=== PATIENT | male | born 1990 | race Caucasian/White ===

== ENCOUNTER 2023-10-02 00:45 | Emergency (ER) | payer OTHER, SELFPAY ==
[2023-10-02 00:54] VITALS: BP 134/98; PULSE 91; RESP 18; TEMP 36.6; O2SAT 99
--- NOTE | 2023-10-02 00:55 | ED.DENTAL ---
HPI - Dental/Oral General Chief complaint: Dental/Oral Stated complaint: dental pain Source: patient Mode of arrival: ambulatory Limitations: no limitations History of Present Illness HPI Narrative: 32-year-old male with no significant past medical history presents to the ER with -- left lower jaw pain for the past few months. The patient has extensive caries. No ear pain or discharge. MD Complaint: tooth pain Location: Tooth # ( Multiple teeth are carious. 18. Is currently fractured and carious with surrounding gum inflammation.) Onset (ago): month(s) Duration: constant Severity: severe Relieving factors: nothing Exacerbating factors: nothing Context: history of dental caries Related Data Allergies Allergy/AdvReac Type Severity Reaction Status Date / Time No Known Allergies Allergy Verified 10/02/23 01:02 Review of Systems Review of Systems: All systems reviewed & are unremarkable except as noted in HPI and below Constitutional: Constitutional: Reports as per HPI and Reports no additional constitutional complaints Eyes: Eyes: Reports as per HPI and Reports no additional eye complaints ENT: Reports system reviewed and no additional complaints, except as documented and Reports as per HPI Comments: Dental pain Cardiovascular: Cardiovascular: Reports as per HPI and Reports no additional cardiovascular complaints Respiratory: Respiratory: Reports as per HPI and Reports no additional respiratory complaints Gastrointestinal: Gastrointestinal: Reports as per HPI and Reports no additional gastrointestinal complaints Genitourinary: Genitourinary: Reports no additional male genitourinary complaints and Reports as per HPI Musculoskeletal: Musculoskeletal: Reports no additional musculoskeletal complaints and Reports as per HPI Integumentary/Breasts: Skin/Breast: Reports system reviewed and no additional complaints, except as docu and Reports as per HPI Neurologic: Reports system reviewed and no additional complaints, except as documented and Reports as per HPI Psychiatric: Psychiatric: Reports no additional psychiatric complaints and Reports as per HPI Endocrine: Endocrine: Reports no additional endocrine complaints and Reports as per HPI Hematologic/Lymphatic: Hematologic/Lymphatic: Reports no additional hematologic/lymphatic complaints and Reports as per HPI Allergic/Immunologic: Allergic/Immunologic: Reports no additional allergic/immunologic complaints and Reports as per HPI PMFSH Past Medical History Medical History Dental caries Social History Social History Smoking status: Current every day smoker Tobacco type: cigarettes Alcohol intake: never Substance use: current Substance use type: marijuana Exam Const: General: ill appearing Nutritional Appearance: well nourished Orientation/consciousness: patient oriented x3 Limitations: no limitations HENMT: Head: normal to inspection Ears: external ears normal Face/Nose/Sinus: Normal external nose present Face and sinus: normal facial exam Teeth and gingiva: dentition normal ( extensive dental caries. 18. Currently appears to be the source of pain a) and abnormal tooth and associated gingiva Throat: posterior oropharynx normal Eyes: Conjunctivae: conjunctivae normal Pupils: Equal, round and reactive pupils present Direct Ophthalmoscopy: no photophobia Neck: Neck: normal visual inspection, no lymphadenopathy and no meningeal signs Chest: Chest palpation & inspection: normal inspection of the chest Resp: Effort & Inspection: normal respiratory effort Auscultation: clear to auscultation bilaterally Cardio: Rate: regular rate Rhythm: regular rhythm GI: Auscultation: normal bowel sounds : General: Yes no CVA tenderness Back/Spine/Pelvis: Back: no CVA tenderness Skin: General skin exam: normal color Rashes: no ra
[2023-10-02] MEDS: HYDROcodone/acetaminophen (*CRX) 5-325 MG TABLET 1 TAB PO (01:15)
[2023-10-02] MEDS: CLINDAMYCIN HCL 150 MG CAP 300 MG PO (01:16)
== END 2023-10-02 01:20 | disposition home or self-care (01) ==
PROVIDERS: Emergency Provider Internal Medicine Critical Care Medicine
DX: K02.9 Dental caries, unspecified (principal); F17.210 Nicotine dependence, cigarettes, uncomplicated
CPT/HCPCS: 99283; A9270

== ENCOUNTER 2025-02-22 22:05 | Emergency (ER) | payer OTHER, SELFPAY ==
[2025-02-22 22:13] VITALS: BP 140/88; PULSE 110; RESP 15; TEMP 36.8; O2SAT 98
--- NOTE | 2025-02-22 22:18 | ED_ITS ---
HPI - Skin/Abscess/Foreign Bdy General Chief complaint: Wound/Laceration Stated complaint: Skin Abscess Time Seen by Provider: 02/22/25 22:18 Source: patient Mode of arrival: ambulatory Limitations: no limitations History of Present Illness HPI narrative: Patient is a 34-year-old male with multiple wounds on his arms and legs from unclear origin. He did claim to the nurse that he uses methamphetamines. Tetanus shot not up-to-date. complaint: other ( Multiple wounds on arms and legs with redness and pain) Onset (ago): unknown Tetanus up to date: no Location: LUE, RUE, LLE and RLE Severity: mild Severity scale (1-10): 3 Quality: aching and constant Pain Consistency: constant Relieving factors: none Exacerbating factors: none Context: other ( patient has multiple wounds on arms and legs that will not resolve and unclear origin and unclear time frame per patient) Associated symptoms: denies other symptoms Treatments prior to arrival: none Related Data Allergies Allergy/AdvReac Type Severity Reaction Status Date / Time No Known Allergies Allergy Verified 02/22/25 22:13 Review of Systems Review of Systems: All systems reviewed & are unremarkable except as noted in HPI and below Constitutional: Constitutional: Reports no additional constitutional complaints Eyes: Eyes: Reports no additional eye complaints ENT: Reports system reviewed and no additional complaints, except as documented Cardiovascular: Cardiovascular: Reports no additional cardiovascular complaints Respiratory: Respiratory: Reports no additional respiratory complaints Gastrointestinal: Gastrointestinal: Reports no additional gastrointestinal complaints Genitourinary: Genitourinary: Reports no additional male genitourinary complaints Musculoskeletal: Musculoskeletal: Reports no additional musculoskeletal complaints Integumentary/Breasts: Skin/Breast: Reports system reviewed and no additional complaints, except as docu Neurologic: Reports system reviewed and no additional complaints, except as documented Psychiatric: Psychiatric: Reports no additional psychiatric complaints Endocrine: Endocrine: Reports no additional endocrine complaints Hematologic/Lymphatic: Hematologic/Lymphatic: Reports no additional hematologic/lymphatic complaints Allergic/Immunologic: Allergic/Immunologic: Reports no additional allergic/immunologic complaints PMFSH Past Medical History Medical History Dental caries Social History Social History Smoking status: Current every day smoker Tobacco type: cigarettes Alcohol intake: never Substance use: current Substance use type: marijuana Exam Const: General: healthy appearing Nutritional Appearance: well nourished Orientation/consciousness: patient oriented x3 Limitations: no limitations Other: patient appears disheveled and homeless HENMT: Head: normal to inspection Ears: external ears normal Face/Nose/Sinus: Normal external nose present Eyes: Conjunctivae: conjunctivae normal Pupils: Equal, round and reactive pupils present EOM: EOMs intact bilaterally Neck: Neck: normal visual inspection Chest: Chest palpation & inspection: normal inspection of the chest Resp: Effort & Inspection: normal respiratory effort and not labored Auscultation: clear to auscultation bilaterally and no crackles Cardio: Rate: regular rate Rhythm: regular rhythm Heart sounds: no murmurs GI: Inspection: non-distended GI Palp: Yes Soft to palpation, No Tenderness to palpation present (GI) and No Guarding due to palpation present (GI) Auscultation: normal bowel sounds : General: Yes bladder normal to palpation Back/Spine/Pelvis: Back: no CVA tenderness Skin: General skin exam: normal color Rashes: no rashes Wounds: wound noted and wounds noted Other: wounds on the left upper extremity x2, right upper extremity x1 and left lower extremity x2 (left knee itself has redness and he points to pain from the knee up to the groin); they are small laceration type wounds with erythema /redness and central ulceration type changes Neuro: General: patient oriented x3 Cranial nerves: Yes Nystagmus not present Speech: normal speech Gait exam (Neuro): Normal gait present Extrem: General: normal to inspection Psych: Mental Status: mental status grossly normal Affect: normal affect Attitude: cooperative Course Vital Signs Vital signs: Vital Signs Temperature 36.8 C 02/22/25 22:13 Pulse Rate 110 H 02/22/25 22:13 Respiratory Rate 15 02/22/25 22:13 Blood Pressure 140/88 02/22/25 22:13 Pulse Oximetry 98 02/22/25 22:13 Oxygen Delivery Room Air 02/22/25 22:13 Temperature 36.8 C 02/22/25 22:13 Pulse Rate 110 H 02/22/25 22:13 Respiratory Rate 15 02/22/25 22:13 Blood Pressure 140/88 02/22/25 22:13 Pulse Oximetry 98 02/22/25 22:13 Oxygen Delivery Room Air 02/22/25 22:13 MDM - Skin/Abscess/Foreign Bdy MDM Narrative Medical decision making narrative: patient is a 34-year-old male with multiple wounds and skin infections. We will give him at a cell booster. We will give him doxycycline. Discharge Plan Discharge Clinical Impression: Multiple wounds of skin Patient Disposition: Home, Self-Care Condition: Stable Instructions: Antibiotic Form, Acute Wounds (DC) Additional Instructions: please follow-up with the primary doctor in the next week. Come back to the emergency room for worse pain or drainage from the areas especially on antibiotics. If the left lower extremity continues to be a problem then I suggest we get an ultrasound to rule out future possibilities. Patient Language: E[place]rean Prescriptions: New doxycycline monohydrate 100 mg capsule 100 mg PO BID 10 Days Qty: 20 0RF Follow-up/Referrals: Fermin Boykin MD [Primary Care Provider] - Time of Disposition: 22:34
[2025-02-22] MEDS: TETANUS,DIPHTHERIA,AC PERTUSSIS ADULT 0.5 ML (ADACEL) IM (22:44)
[2025-02-22] MEDS: DOXYCYCLINE HYCLATE 100 MG TABLET PO (22:45)
== END 2025-02-22 23:06 | disposition home or self-care (01) ==
LOC: CHSED 22:50
PROVIDERS: Emergency Provider Emergency Medicine; PCP Family Medicine
DX: S41.102A Unspecified open wound of left upper arm, initial encounter (principal); S41.101A Unspecified open wound of right upper arm, initial encounter; S81.802A Unspecified open wound, left lower leg, initial encounter; S81.801A Unspecified open wound, right lower leg, initial encounter; F17.200 Nicotine dependence, unspecified, uncomplicated; X58.XXXA Exposure to other specified factors, initial encounter; Z23 Encounter for immunization
CPT/HCPCS: 90471; 90715; 99283; A9270

== ENCOUNTER 2025-07-04 05:04 | Emergency (ER) | payer OTHER, SELFPAY ==
--- NOTE | ~2025-07-04 | XR_ITS ---
XR foot LT min 3V 07/04/2025 05:31 INDICATION: Left foot pain. Patient stepped on nail. PROCEDURE: 4 views left foot COMPARISON: No prior studies for comparison. FINDINGS: Fracture, dislocation or subluxation is not identified. Lisfranc joint intact. The soft tis sues appear within normal limits. No foreign bodies are identified. IMPRESSION: 1: NO ACUTE BONE OR JOINT ABNORMALITY IDENTIFIED. Reviewed, dictated and finalized at location A.
[2025-07-04 05:04] VITALS: BP 127/71; PULSE 89; RESP 16; TEMP 37.2; O2SAT 98
--- NOTE | 2025-07-04 05:07 | ED_ITS ---
HPI - Extremity Injury (Lower) General Chief Complaint: Extremity Injury, Lower Stated Complaint: stepped on nail Time Seen by Provider: 07/04/25 05:07 Source: patient Mode of arrival: ambulatory Limitations: no limitations History of Present Illness HPI Narrative: Patient is a 34-year-old male who was doing yd work in the night and stepped on a large nail. He had a tetanus shot last year. He felt pain in the left foot and removed the nail when it was noted. MD complaint: foot injury ( Left plantar) Onset (ago): hour(s) (2) Type of Injury: puncture wound Place: home and street/outdoors Severity: moderate Severity scale (1-10): 3 Relieving factors: rest Exacerbating factors: weight bearing, movement and palpation Context: stepped on nail Associated symptoms: ambulatory Other symptoms: none Treatments prior to arrival: bandage Related Data Allergies Allergy/AdvReac Type Severity Reaction Status Date / Time No Known Allergies Allergy Verified 07/04/25 05:08 Review of Systems Review of Systems: All systems reviewed & are unremarkable except as noted in HPI and below Constitutional: Constitutional: Reports no additional constitutional complaints Eyes: Eyes: Reports no additional eye complaints ENT: Reports system reviewed and no additional complaints, except as documented Cardiovascular: Cardiovascular: Reports no additional cardiovascular complaints Respiratory: Respiratory: Reports no additional respiratory complaints Gastrointestinal: Gastrointestinal: Reports no additional gastrointestinal complaints Genitourinary: Genitourinary: Reports no additional male genitourinary complaints Musculoskeletal: Musculoskeletal: Reports no additional musculoskeletal complaints Integumentary/Breasts: Skin/Breast: Reports system reviewed and no additional complaints, except as docu Neurologic: Reports system reviewed and no additional complaints, except as documented Psychiatric: Psychiatric: Reports no additional psychiatric complaints Endocrine: Endocrine: Reports no additional endocrine complaints Hematologic/Lymphatic: Hematologic/Lymphatic: Reports no additional hematologic/lymphatic complaints Allergic/Immunologic: Allergic/Immunologic: Reports no additional allergic/immunologic complaints PMFSH Past Medical History Medical History Dental caries Social History Social History Smoking status: Current every day smoker Tobacco type: cigarettes Alcohol intake: never Substance use: current Substance use type: marijuana Exam Const: General: healthy appearing Nutritional Appearance: well nourished Orientation/consciousness: patient oriented x3 HENMT: Head: normal to inspection Ears: external ears normal Face/Nose/Sinus: Normal external nose present Eyes: Conjunctivae: conjunctivae normal Pupils: Equal, round and reactive pupils present EOM: EOMs intact bilaterally Neck: Neck: normal visual inspection Chest: Chest palpation & inspection: normal inspection of the chest Resp: Effort & Inspection: normal respiratory effort and not labored Auscultation: clear to auscultation bilaterally and no crackles Cardio: Rate: regular rate Rhythm: regular rhythm Heart sounds: no murmurs GI: Inspection: non-distended GI Palp: Yes Soft to palpation and No Tenderness to palpation present (GI) Auscultation: normal bowel sounds : General: Yes bladder normal to palpation Back/Spine/Pelvis: Back: no CVA tenderness Skin: General skin exam: normal color Rashes: no rashes Wounds: wound noted Other: left foot plantar surface mid foot has a puncture wound present without pus or drainage or infection and no bleeding Neuro: General: patient oriented x3, moves all extremities and no meningeal signs Extrem: General: normal to inspection Psych: Mental Status: mental status grossly normal Affect: normal affect Attitude: cooperative Course Vital Signs Vital signs: Vital Signs Temperature 37.2 C 07/04/25 05:04 Pulse Rate 89 07/04/25 05:04 Respiratory Rate 16 07/04/25 05:04 Blood Pressure 127/71 07/04/25 05:04 Pulse Oximetry 98 07/04/25 05:04 Oxygen Delivery Room Air 07/04/25 05:04 Temperature 37.2 C 07/04/25 05:04 Pulse Rate 89 07/04/25 05:04 Respiratory Rate 16 07/04/25 05:04 Blood Pressure 127/71 07/04/25 05:04 Pulse Oximetry 98 07/04/25 05:04 Oxygen Delivery Room Air 07/04/25 05:04 MDM - Extremity Injury (Lower) MDM Narrative Medical decision making narrative: patient is a 34-year-old male with a left foot puncture wound into the soft tissue this evening. Tetanus shot up-to-date. We will use Keflex. X-ray. Imaging Data Attestation: I personally reviewed and interpreted this imaging study as follows: My impression: X-ray left foot pending final read shows no acute process Discharge Plan Discharge Clinical Impression: Foreign body in foot, left Qualifiers: Encounter type: initial encounter Qualified Code(s): S90.852A - Superficial foreign body, left foot, initial encounter Patient Disposition: Home Condition: Stable Instructions: Antibiotic Form, Soft Tissue Foreign Body (ED) Patient Language: Icelandic Prescriptions: New cephalexin 500 mg capsule 500 mg PO BID 7 Days Qty: 14 0RF Follow-up/Referrals: UNKNOWN,DOCTOR [Primary Care Provider] - Time of Disposition: 05:27
--- OUTSIDE RECORDS SUMMARY | 2025-07-04 05:08 | XMS_ITS ---
Author Organization [facility] Address [address] [place] [address] Care Team Providers Care General Ledger Accountant Name Role Phone Gómez Mcmullen Primary Care Provider Tasneem Hargrove Unavailable [phone] Allergies No Known Allergies REASON FOR VISIT ADHD Meds Medications Medication SIG (Take, Route, Fr equency, Duration) Notes Start Date End Date Status Nicotine Mini 4 MG 1 lozenge as needed Mouth/Throat every 8 hrs Active Social History Tobacco Use: Social History Observation Description Date Details (start date - stop date) Current Smoker NA - NA Sexual History Question Answer Notes Had sex in the past 12 months (vaginal, oral, or anal)? Yes with Women only Use protection? No Prevention strategies discussed: Condoms Have you ever had a Sexually transmitted disease ? No Tobacco use other than smoking: Question Answer Notes Are you an other tobacco user? No Tobacco Control (Standard) Question Answer Notes Tobacco use: Current smoker How often do you smoke cigarettes? Every day How many cigarettes a day do you smoke? 5 or les s How soon after you wake up do you smoke your fir st cigarette? Within 5 minutes Are you interested in quitting? Not ready to lissy t AUDIT-C (Standard) Question Answer Notes Did you have a drink contain ing alcohol in the past year? Yes How often did you have a dri nk containing alcohol in the past year? 2 to 4 times a month (2 points) How many drinks did you have on a typical day when you were drinking in the past year? 3 or 4 drinks (1 point) How often did you have six o r more drinks on one occasion in the past year? 2 to 4 times a month (2 points) Points 5 Interpretation Positive Problems Problem Type SNOMED Code ICD Code Onset Dates Problem Status W/U Status Risk Notes Problem Addiction (32538110) Addiction (F19.20) Active confirmed Problem Alcohol dependence (80843604) Alcoh dep NEC/NOS, unspec (F10.288) Active confirmed Problem Anxiety (27133203) Anxiety (F41.9) Active confirmed Vital Signs Temperature 97.3 degrees Fahrenheit 04/26/20 25 Blood pressure systolic 141 mm Hg 04/26/20 25 Blood pressure diastolic 81 mm Hg 025 Heart Rate 78 /min 04/26/2025 Respiratory Rate 18 /min 04/26/2025 Height 70 in 04/26/2025 Weight 175 lbs 04/26/2025 BMI 25.11 kg/m2 04/26/2025 Oximetry 98 % 04/26/2025 Height-cm 177.8 cm 04/26/2025 Weight-kg 79.38 kg 04/26/2025 Encounters Encounter Location Date Provider Diagnosis [facility] [address] [place] [id number] 04/26/2025 Tasneem Julesoctavia Addiction F19.20 ; Anxiety F41.9 ; Gambling and betting Z72.6 ; Alcoh dep NEC/NOS, unspec F10.288 ; Tobacco abuse Z72.0 and Tobacco abuse counseling Z71.6 Assessments Encounter Date Diagnosis (ICD Code) Assessment Notes Treatment Notes Treatment Clinical Notes Section Notes 04/26/2025 Addiction (ICD-10 - F19.20) 04/26/2025 Anxiety (ICD-10 - F41.9) 04/26/2025 Gambling and betting (ICD-10 - Z72.6) 04/26/2025 Alcoh dep NEC/NOS, unspec (ICD-10 - F10.288) 04/26/2025 Tobacco abuse (ICD-10 - Z72.0) 04/26/2025 Tobacco abuse counseling (ICD-10 - Z71.6) Plan Of Treatment No Information Progress Notes * Angus ANDREWDOB: [birth year] (34 yo M)Acc No.[id number]:04/26/2025 Patient: Angus PARIKH Provider: WALDO Duckworth :1990 A ge:34 Y S ex:Male Date:04/26/2025 Address:[address] [place] [address], [place], [place]-[address] Pcp:Gómez Mcmullen Check In:01:34 PM CSTChejessika O ut:01:41 PM CHAIR MENDER Subjective: * Chief Complaints: * 1 . ADHD Meds. * HPI: D epression Screening: PHQ-2 (2015 Edition) L ittle interest or pleasure in doing things? N ot at all, F eeling down, depressed, or hopeless? N ot at all, T otal Score 0 . 04/26/25 Patient presents for ADHD medication. He reports that he was diagnosed with ADHD when he was in the seventh grade. He did take the medication for sometimes then stopped taking the medication. He states he feels full of energy. He did not report any concentration issues. He is using a stress ball when he gets anxious. He reports his anxiety has not been an issue. He is sleeping well at night. His PHQ9 score is 6 today. He states that he does not feel depressed and has no thoughts of self harm. We did discuss his options and at this time he wants to wait before starting any medication. He was encouraged to return if he changed his mind about starting medications. History of Meth usage History of alcohol usage once per week. History of gambling addiction. Current smoker less than half pack per day. He is currently on Nicotine lozenges as needed. D epression Screening: PHQ-9 L ittle interest or pleasure in doing things N ot at all, F eeling down, depressed, or hopeless N ot at all, T rouble falling or staying asleep, or sleeping too much N ot at all, F eeling tired or having little energy N ot at all, P oor appetite or overeating N ot at all, F eeling bad about yourself or that you are a failure, or have let yourself or your family down S everal days, T rouble concentrating on things, such as reading the newspaper or watching television M ore than half the days, M oving or speaking so slowly that other people could have noticed; or the opposite, being so fidgety or restless that you have been moving around a lot more than usual N early every day, T houghts that you would be better off or of hurting yourself in some way N ot at all, T otal Score 6 , I nterpretation M ild Depression. F amily Planning: Reproductive Life Plan D o you want to talk about contraception or prevention during your visit today? N o, D o any of these apply to you??I am here for something else. * ROS: G eneral/Constitutional: Patient denies c hills, fatigue, fever, headache. ? R espiratory: Patient denies c ough, shortness of breath, sputum production, wheezing. C ardiovascular: Patient denies c hest pain, palpitations, swelling in hands/feet, Syncopal events. G astrointestinal: Patient denies a bdominal pain, nausea, vomiting, diarrhea, constipation, blood in stool. M usculoskeletal: Patient denies a rthritis, back problems, muscle aches, painful joints, weakness. S kin: Patient denies d iscoloration, dry skin, mole(s), rash.? N eurologic: Patient denies d izziness, fainting, headache, loss of strength, seizures, tingling/numbness. P sychiatric: Patient denies f eelings of anxiety , depressed mood , auditory/visual hallucinations , suicidal/homicidal thoughts. * Medical History: M elatonin, Nicotine pouches. * Family History: F ather: , diagnosed with Cancer. M other: alive. 1 brother(s) , 4 sister(s) - healthy. . * Social History: T obacco Use: T obacco use other than smoking A re you an other tobacco user? N o. A re you a second hand smoker? A re you a second hand smoker? N o. T obacco Control (Standard) T obacco use: C urrent smoker, H ow often do you smoke cigarettes? E very day, H ow many cigarettes a day do you smoke? 5 or less, H ow soon after you wake up do you smoke your first cigarette? W ithin 5 minutes, A re you interested in quitting? N ot ready to quit.? P CMH: A DULT E ducation: M ore than high school diploma/GED, E mployment: P art time, D o you understand spoken faroese? Y es, C ommunication needs (hearing, visual or cognitive): N o, G ood ability to interact with other people: Y es, I nsecurities in? (list all that apply) N one, R eviewed/Updated 0 04/26/2025. D rug/Alcohol: A PARRISH-C (Standard) D id you have a drink containing alcohol in the past year? Y es,?How often did you have a drink containing alcohol in the past year? 2 to 4 times a month (2 points), H ow many drinks did you have on a typical day when you were drinking in the past year? 3 or 4 drinks (1 point), H ow often did you have six or more drinks on one occasion in the past year? 2 to 4 times a month (2 points), P oints 5 , I nterpretation P ositive. S exual History: S exual History H ad sex in the past 12 months (vaginal, oral, or anal)? Y es, w ith W omen only, U se protection? N o, P revention strategies discussed: C ondoms, H ave you ever had a Sexually transmitted disease? N o. D etails of Sexual History?Are you sexually active? Y es, A re you having any sexual problems? N o, H ave you had any sexually transmitted diseases (STDs)? N o. S exual Abuse H istory: n one.? D rugs/Alcohol: D rugs H ave you used drugs other than those for medical reasons in the past 12 months??Yes, A re you in a treatment program? Y es, r elapse prevention discussed? Y es, Name of program: [facility], T ype of program: R esidential treatment, H ave ever injected drugs? N o, A re you still using? N o, I s there a minor (18 years or younger) at risk at home? N o, M arijuana? Y es, M ethamphetamine? Y es. C affeine I ntake: m ore than 4 cups per day. * Medications: T aking Nicotine Mini 4 MG Lozenge 1 lozenge as needed Mouth/Throat every 8 hrs , Medication List reviewed and reconciled with the patient * Allergies: N .K.D.A. Objective: * Vitals: Wt 175lbs 04/26/2025 01:28:38 PM CHAIR MENDER Wt-kg* 79.38 kg 04/26/2025 01:28:38 PM CHAIR MENDER Jennifer F orrester TECHNICAL INTERN Ht* 70in 04/26/2025 01:27:44 PM CHAIR MENDER Jennifer F orrester TECHNICAL INTERN Ht-cm* 177.8 cm 04/26/2025 01:27:44 PM CHAIR MENDER Jennifer F orrester TECHNICAL INTERN BMI* 25.11Index 04/26/2025 01:28:38 PM CHAIR MENDER Jennifer F orrester TECHNICAL INTERN BP* 141/81mm Hg 04/26/2025 01:27:44 PM CHAIR MENDER Jennifer F orrester TECHNICAL INTERN Temp* 97.3F 04/26/2025 01:27:44 PM CHAIR MENDER Jennifer F orrester TECHNICAL INTERN HR* 78/min 04/26/2025 01:27:44 PM CHAIR MENDER Jennifer F orrester TECHNICAL INTERN RR* 18/min 04/26/2025 01:27:44 PM CHAIR MENDER Jennifer F orrester TECHNICAL INTERN Oxygen sat %* 98% 04/26/2025 01:27:44 PM CHAIR MENDER Jennifer F orrester TECHNICAL INTERN * Examination: G eneral Examination: GENERAL APPEARANCE: a lert, well hydrated, In no distress.? SKIN: g ood turgor, no rashes, warm and dry. HEART: no murmurs, regular rate and rhythm, S1, S2 normal. LUNGS: c lear to auscultation bilaterally, No wheezing, No rhonchi, No rales, No cough. ABDOMEN: S oft, Nontender, Nondistended, No masses, No visual or palpable hernia, Bowel sounds present. MUSCULOSKELETAL: f ull range of motion, No joint swelling or joint deformity. NEUROLOGIC: a lert and oriented, no focal neurological deficits, motor strength normal upper and lower extremities, gait normal. Assessment: * Assessment: 1. A ddiction - F19.20 2 . A nxiety - F41.9 (Primary) 3 .?Gambling and betting - Z72.6 4 . A lcoh dep NEC/NOS, unspec - F10.288 ? 5 . T obacco abuse - Z72.0 6 . T obacco abuse counseling - Z71.6? Plan: * Treatment: * Procedure Codes: G 9902 Pt scrn tbco and id as user * Preventive Medicine: YOUR PREVENTIVE WELLNESS PLAN: O ral Health: T he recommended frequency for dental check-ups is: e very 6 months, L ast dental check-up was: m ore than a year ago, Intervention: e ncouraged pt to make appointment with their dentist or with a dentist at [facility],?Education handouts provided: L earning about Dental Care. Counseling: B P Management: Erik IFESTYLE RECOMMENDATION: H ypertension education, P HYSICAL ACTIVITY RECOMMENDATION: G iving encouragement to exercise, D IETARY RECOMMENDATIONS: L ow fat diet education. C are goal follow-up plan: B KS management provided Y es, E xercise Counseling Provided- Y es, N utrition/Dietary Counseling provided?Yes, A chicho Normal BMI Follow-up G iving encouragement to exercise, Lifestyle education regarding diet. C ommunication to patient: Nick jonesnseled the Patient on smoking effects; education provided 0 04/26/2025 . S MOKING: P atient counselled on the dangers of tobacco use and urged to quit. 0 04/26/2025 . * * Electronic signature of WALDO Carnes on 07/04/2025 at 05:08 AM CDT Sign off status: Pending Visit Status: Nick DELEON (Check Out) * Provider: WALDO Duckworth Date: 0 04/26/2025 Generated for Gayle amos/Maricel/Lance on: 0 07/04/2025 05:08 AM CDT History and Physical Notes * HPI (History of Present Illness) Category Sub-Category Detail Notes Category Not es Family Planning Reproductive Life Plan Do you wa nt to talk about contraception or prevention during your visit today?: No Do any of these apply to you?: I am here for something else Depression Screening PHQ-9 Little inte rest or pleasure in doing things: Not at all Feeling down, depressed, or hopeless: No t at all Trouble falling or staying asleep, or sl eeping too much: Not at all Feeling tired or having little energy: N ot at all Poor appetite or overeating: Not at all Feeling bad about yourself o r that you are a failure, or have let yourself or your family down: Several days Trouble concentrating on thi ngs, such as reading the newspaper or watching television: More than half the days Moving or speaking so slowly that other people could have noticed; or the opposite, being so fidgety or restless that you have been moving around a lot more than usual: Nearly every day Thoughts that you would be b brett off or of hurting yourself in some way: Not at all Total Score: 6 Interpretation: Mild Depression Depression Screening PHQ-2 (2015 Edition) Little interest or pleasure in doing things?: Not at all 04/26/25 Patient presents for ADHD medication. He reports that he was diagnosed with ADHD when he was in the seventh grade. He did take the medication for sometimes then stopped taking the medication. He states he feels full of energy. He did not report any concentration issues. He is using a stress ball when he gets anxious. He reports his anxiety has not been an issue. He is sleeping well at night. His PHQ9 score is 6 today. He states that he does not feel depressed and has no thoughts of self harm. We did discuss his options and at this time he wants to wait before starting any medication. He was encouraged to return if he changed his mind about starting medications. History of Meth usage History of alcohol usage once per week. History of gambling addiction. Current smoker less than half pack per day. He is currently on Nicotine lozenges as needed. Feeling down, depressed, or hopeless?: N ot at all Total Score: 0 Examination Category Sub-Category Detail Notes Category Not es General Examination GENERAL APPEARANCE: alert, w ell hydrated, In no distress HEART: no murmurs, regular rate and rhythm, S1, S2 normal LUNGS: clear to auscultatio n bilaterally, No wheezing, No rhonchi, No rales, No cough ABDOMEN: Soft, Nontender, Non distended, No masses, No visual or palpable hernia, Bowel sounds present NEUROLOGIC: alert and oriented, no focal neurological deficits, motor strength normal upper and lower extremities, gait normal SKIN: good turgor, no rash es, warm and dry MUSCULOSKELETAL: full range of motion , No joint swelling or joint deformity
--- OUTSIDE RECORDS SUMMARY | 2025-07-04 05:08 | XMS_ITS | Patient Health Record ---
Author Organization [facility] Address [address] [place] [address] Care Team Providers Care Laboratory Associate Name Role Phone Gómez Mcmullen Primary Care Provider [phone] Tasneem Hargrove Unavailable [phone] Allergies No Known Allergies Reason For Referral No Information Medications Medication SIG (Take, Route, Frequency, Duration) Notes Start Date End Date Status Nicotine Polacrilex 4 MG USE 2 GUM(S) 3 TIMES A DAY NEEDED Mouth/Throat; Duration: 16 Days Not-Taking Cephalexin 500 MG TAKE 1 CAPSULE BY MARGE SHI EVERY 6 HOURS FOR 7 DAYS Oral; Duration: 7 Days Not-Takin g Immunizations Vaccine Route Administration Date Status Comme nts DTP Unknown 01/30/1994 Administered DTP Unknown 08/01/1994 Administered Hib, unspecified formulation Unknown 01/30/1994 Adminis tered MMR, NON-VFC Unknown 01/30/1994 Administered OPV Unknown 01/30/1994 Administered Tdap (Boostrix) NON-VFC Unknown 02/22/2025 Administered Social History Tobacco Use: Social History Observation Description Date Details (start date - stop date) Current Smoker 04/09/2000 - NA Sexual History Question Answer Notes Had sex in the past 12 months (vaginal, oral, or anal)? Yes with Women only Use protection? No Have you ever had a Sexually transmitted disease ? No Tobacco Control (Standard) Question Answer Notes Tobacco use: Current smoker When did you start smoking? 04/09/2000 How often do you smoke cigarettes? Every day How many cigarettes a day do you smoke? 11-20 How soon after you wake up do you smoke your fir st cigarette? 6-30 minutes AUDIT-C (Standard) Question Answer Notes Did you have a drink containing alcohol in the p ast year? No Points 0 Interpretation Negative PRAPARE Question Answer Notes Date Completed/Updated: 04/28/2025 What is your current housing situation? I have h ousing Are you worried about losing your housing? No What is the highest level of school that you have finished? More than high school What is your current work situation? Unemployed and seeking work In the past year, have you o r any family members you live with been unable to get any of the following when it was really needed? Check all that apply I do not have problems meeting my needs Has lack of transportation k ept you from medical appointments, meetings, work or from getting things needed for daily living? No How often do you see or talk to people that you care about and feel close to? (For example: talking to friends on the phone, visiting friends or family, going to mormon or club meetings) 3 to 5 times a week How stressed are you? Stress is when someone feels tense, nervous, anxious, or can't sleep at night because their mind is troubled Not at all PRAPARE Score: 2 Enabling Services Provided? Yes Please specify Outreach Services Problems Problem Type SNOMED Code ICD Code Onset Dates Problem Status W/U Status Risk Notes Problem Anxiety (17358713) Anxiety (F41.9) Active confirmed Problem Alcohol dependence (93393772) Alcoh dep NEC/NOS, unspec (F10.288) Active confirmed Problem Addiction (65030285) Addiction (F19.20) Active confirmed Vital Signs Heart Rate 90 /min 04/28/2025 Temperature 98.0 degrees Fahrenheit 04/28/2025 Respiratory Rate 16 /min 04/28/2025 Height-cm 177.8 cm 04/28/2025 Oximetry 97 % 04/28/2025 Blood pressure diastolic 83 mm Hg 04/28/2025 Weight-kg 81.28 kg 04/28/2025 Height 70 in 04/28/2025 Blood pressure systolic 130 mm Hg 04/28/2025 Weight 179.2 lbs 04/28/2025 BMI 25.71 kg/m2 04/28/2025 Encounters Encounter Location Date Provider Diagnosis [facility] [address] [place] [phone] 04/26/2025 Tasneem Vicenterenénikki Addiction F19.20 ; Anxiety F41.9 ; Gambling and betting Z72.6 ; Alcoh dep NEC/NOS, unspec F10.288 ; Tobacco abuse Z72.0 and Tobacco abuse counseling Z71.6 [facility] [address] [place] [address] 04/28/2025 Gómez Mcmullen Tobacco abuse Z72.0 ; Anxiety F41.9 and BMI 25.0-25.9,adult Z68.25 [facility] [address] [place] [address] 04/26/2025 Tasneem Hargrove Assessments Encounter Date Diagnosis (ICD Code) Assessment Notes Treatment Notes Treatment Clinical Notes Section Notes 04/28/2025 Anxiety (ICD-10 - F41.9) 1.Stress reduction. 2. Eat a healthy diet. 3. Try to exercise at least 30 minutes daily. 4. moving to [place], [place] next week 5. Avoid alcohol, caffeine, cold medicine and drugs. patient to establish care with PCP nearby, advised to call insurance/family, Generalized Anxiety Disorder: Care Instructions material was printed 04/28/2025 Tobacco abuse (ICD-10 - Z72.0) Quitting Tobacco: Care Instructions material was printed, Deciding About Using Medicines To Quit Smoking material was printed 04/26/2025 Anxiety (ICD-10 - F41.9) 04/26/2025 Addiction (ICD-10 - F19.20) 04/26/2025 Gambling and betting (ICD-10 - Z72.6) 04/28/2025 BMI 25.0-25.9,adult (ICD-10 - Z68.25) Body Mass Index: Care Instructions material was printed, Learning About Healthy Weight material was printed 04/26/2025 Alcoh dep NEC/NOS, unspec (ICD-10 - F10.288) 04/26/2025 Tobacco abuse (ICD-10 - Z72.0) 04/26/2025 Tobacco abuse counseling (ICD-10 - Z71.6) 04/28/2025 Other Advised to call clinic for any acute concerns Plan Of Treatment No Information Insurance Providers Payer Name Payer Address Payer Phone Subscriber Number Group Number Insured Name Patient Relationship to Insured Coverage Start Date Coverage End Date Medicaid [facility] Primary Only [address], [place] [id number] Angus Calloway Self - patient is the insured Medical (General) History Medical History History ICD Code melatonin nicotine pouches
[2025-07-04] MEDS: CEPHALEXIN 500 MG CAPSULE PO (05:37)
== END 2025-07-04 05:54 | disposition home or self-care (01) ==
LOC: CHSED 05:47
PROVIDERS: Emergency Provider Emergency Medicine
DX: S90.852A Superficial foreign body, left foot, initial encounter (principal); F17.210 Nicotine dependence, cigarettes, uncomplicated; W45.0XXA Nail entering through skin, initial encounter
CPT/HCPCS: 73630; 99283; A9270